=== PATIENT | male | born 1975 | race Caucasian/White ===

== ENCOUNTER 2021-05-11 17:30 | Emergency (ER) | payer SELFPAY ==
[2021-05-11 17:40] VITALS: BP 154/83; PULSE 104; RESP 16; TEMP 37.7; O2SAT 99
--- NOTE | 2021-05-11 19:02 | ED.URI ---
HPI - URI/Sore Throat General Chief Complaint: Upper Respiratory Infection Stated Complaint: cold/flu sx Time Seen by Provider: 05/11/21 19:03 Source: patient Mode of arrival: ambulatory Limitations: no limitations History of Present Illness HPI Narrative: 45-year-old male presenting for complaint of sinus pressure and congestion, headache, body aches, and cough over the past 3 days. He endorses feeling dizzy and decreased appetite. Denies n/v/d. He is a smoker 1 pack/day. He has taken ibuprofen this morning with no relief in headache pain. He is not vaccinated for COVID. He also endorses positive contacts with COVID. Related Data Home Medications Medication Instructions Recorded Confirmed No Home Medications 05/11/21 05/11/21 Allergies Allergy/AdvReac Type Severity Reaction Status Date / Time ciprofloxacin Allergy Intermediate RESPIRATORY Verified 12/09/14 22:31 DIFFICULTY, ITCHING Penicillins Allergy Mild Verified 12/09/14 22:31 codeine Allergy Unknown Unknown Verified 07/17/17 17:38 Review of Systems Review of Systems: CONSTITUTIONAL: Endorses malaise, chills, sweats, fever. EYES: Denies visual changes, redness, or discharge. ENT: Reports rhinorrhea, congestion, sinus pain, denies otalgia and sore throat. CARDIOVASCULAR: Denies chest pain, palpitations, or edema. RESPIRATORY: Reports cough, post nasal drainage. Denies dyspnea. GASTROINTESTINAL: Denies abdominal pain, nausea, vomiting, diarrhea SKIN: Denies rash or itching. MUSCULOSKELETAL: Denies myalgia. NEUROLOGIC: Denies headache. [facility] Family History Family History Other Cerebrovascular accident Family history of arthritis Family history of cardiovascular disease Hypertension Social History Social History Alcohol intake: current Comments At time of signature, I have reviewed and agree with nursing past medical, surgical, social and family history unless otherwise noted. Please see nursing chart for further information. There is no relevant family history pertinent to the presenting complaint Exam Narrative: GENERAL: Ill-appearing, non toxic, no acute distress. HEAD: Normocephalic EYES: PERRLA, conjunctivae clear ENT: Mucous membranes moist. TM pearly smith with dull light reflex bilaterally; no tragal tenderness. Oropharynx erythematous without lesions. Tonsils without exudate, no drooling, no hoarseness, no trismus, uvula midline. NECK: Supple. No lymphadenopathy CHEST: Clear to auscultation, breath sounds equal. No wheezing, rhonchi, rales, or stridor. Dry cough, No respiratory distress, speaks in full sentences. HEART: Regular rate and rhythm. No murmur heard. SKIN: Warm, dry, no rash. NEURO: Alert and oriented x3. PSYCH: Normal mood and affect Course Course Emergency Course: covid neg flu neg We discussed risk of false negative and symptom treatment. Patient is aware of diagnosis, understands and agrees to treatment plan. Anticipatory guidance given. Patient agrees to follow-up as directed and is aware of reasons to seek care at the emergency department. Portions of this record may have been created with voice recognition software Level of Care: Express Care Visit Vital Signs Vital signs: Vital Signs Temperature 99.8 F H 05/11/21 17:40 Pulse Rate 104 H 05/11/21 17:40 Respiratory Rate 16 05/11/21 17:40 Blood Pressure 154/83 H 05/11/21 17:40 Pulse Oximetry 99 05/11/21 17:40 Temperature 99.8 F H 05/11/21 17:40 Pulse Rate 104 H 05/11/21 17:40 Respiratory Rate 16 05/11/21 17:40 Blood Pressure 154/83 H 05/11/21 17:40 Pulse Oximetry 99 05/11/21 17:40 reviewed MDM - URI/Sore Throat Differential Diagnosis Differential diagnosis: Likely upper respiratory infection, sinusitis, viral infection and influenza Lab Data Attestation: I reviewed the patient's lab results. Labs: I
== END 2021-05-11 19:52 | disposition home or self-care (01) ==
PROVIDERS: Emergency Provider Nurse Practitioner Family
DX: B34.9 Viral infection, unspecified (principal); I51.9 Heart disease, unspecified
CPT/HCPCS: 87426; 87804; 99213; C9803; G0463

== ENCOUNTER 2021-10-07 01:39 | Inpatient (IN) | payer SELFPAY ==
[2021-10-07] VITALS (19 sets, daily range): BP systolic 105–152; BP diastolic 74–88; PULSE 60–98; RESP 13–99; TEMP 36.4–36.7; O2SAT 96–99; BMI 30.8
--- NOTE | ~2021-10-07 | XR_ITS ---
EXAMINATION: XR chest 2V DATE: 10/07/2021 02:07 INDICATION: Chest pain. TECHNIQUE: Frontal and lateral views of the chest were obtained. COMPARISON: Chest single view 12/26/2010 FINDINGS: The chest demonstrates clear lungs without pneumonia, pleural effusion, or pneumothorax. Th e heart size is normal. There are changes of anterior fusion procedure in cervical spine. There is an old healed fracture of right ninth rib. IMPRESSION: 1. No acute cardiopulmonary disease. Reviewed, dictated and finalized at location A.
--- NOTE | 2021-10-07 01:40 | ECG_ITS ---
Measurements Intervals Britt Rate: 79 P: 16 AL: 120 QRS: 63 QRSD: 113 T: -23 QT: 378 QTc: 435 Interpretive Statements SINUS RHYTHM MODERATE INTRAVENTRICULAR CONDUCTION DELAY [110+ ms QRS DURATION] NONSPECIFIC ST & T-WAVE ABNORMALITY NO PREVIOUS ECG AVAILABLE FOR COMPARISON Electronically Signed On 10-07-2021 7:26:59 CDT by Dean Doyle M.D.
--- NOTE | 2021-10-07 01:41 | PC.NURSE ---
pct offered pt a wheelchair, pt refused. pt ambulatory with steady gait to room 4 with pct.
[2021-10-07 01:51] LABS: Basophils Absolute Auto 0.1 K/mm3 (0.0-0.1); Basophils Percent Auto 0.6 % (0.2-1.2); Eosinophils Absolute Auto 0.3 K/mm3 (0-0.3); Eosinophils Percent Auto 3.6 % (0-4.4); Hematocrit 43.6 % (42.0-52.0); Hemoglobin 14.8 g/dL (14.0-18.0); Immature Granulocyte Absolute 0.04 K/mm3 (0.00-0.031); Immature Granulocyte Percent A 0.4 % (0-0.5); Lymphocytes Absolute Auto 3.27 K/mm3 (0.9-3.2); Lymphocytes Percent Auto 34.3 % (18.3-44.2); Mean Corpuscular HGB Conc 33.9 g/dl (32-36); Mean Corpuscular Volume 88.3 fl (80-100); Mean Platelet Volume 10.4 fl (7.4-10.4); Monocytes Absolute Auto 0.7 K/mm3 (0.1-0.6); Monocytes Percent Auto 7.1 % (2.6-8.5); Neutrophils Absolute Auto 5.1 K/mm3 (1.3-6.7); Platelet Count Result 229 k/mm3 (150-375); Red Blood Count 4.94 M/mm3 (4.6-6.20); Red Cell Distribution Width 12.5 % (11.5-14.5); White Blood Count 9.5 K/mm3 (4.5-10.0)
[2021-10-07 02:02] LABS: Partial Thromboplastin Time 28.1 SECONDS (22.3-36.8); Prothrombin Time 12.8 Seconds (11.1-14.7)
[2021-10-07 02:05] LABS: Alanine Aminotransferase 20 U/L (6-50); Albumin Level 4.2 g/dL (3.5-5.1); Alkaline Phosphatase 69 U/L (38-126); Anion Gap 6 mmol/L (8-16); Aspartate Amino Transferase 19 U/L (17-59); Bilirubin,Total 0.3 mg/dL (0.2-1.3); Blood Urea Nitrogen 11 mg/dL (9-20); Calcium 8.7 mg/dL (8.4-10.2); Carbon Dioxide 26 mmol/L (22-30); Chloride 108 mmol/L (98-107); Estimated CRCL calculation 120 ml/min; Estimated Glomerular Filt Rate > 60; Glucose 119 mg/dL (65-110); Lipase 128 U/L (23-300); Potassium 3.5 mmol/L (3.4-5.0); Sodium 140 mmol/L (137-145)
[2021-10-07 02:16] LABS: Troponin I 0.024 ng/mL (0.000-0.034)
[2021-10-07 02:24] LABS: NT Pro B Type Natriuretic Pept 79 pg/mL (5-100)
--- NOTE | 2021-10-07 02:38 | ED.CHESTPAIN ---
HPI - Chest Pain General Chief Complaint: Chest Pain Stated Complaint: chest pain Time Seen by Provider: 10/07/21 01:46 History of Present Illness HPI narrative: This 46-year-old male with history of CAD presents with 1 to 2 days of chest pain, he states that prior to presentation here he had severe pain in his chest that seem to radiate to both arms, with diaphoresis, no nausea or vomiting, but did have shortness of breath, it felt similar to his prior MIs so he took 2 nitroglycerin and an aspirin, felt slightly better, and came to the hospital. It seems to hurt more when he leans back. Related Data Home Medications Medication Instructions Recorded Confirmed No Home Medications 05/11/21 05/11/21 Allergies Allergy/AdvReac Type Severity Reaction Status Date / Time ciprofloxacin Allergy Intermediate RESPIRATORY Verified 10/07/21 01:48 DIFFICULTY, ITCHING Penicillins Allergy Mild Unknown Verified 10/07/21 01:48 codeine Allergy Unknown Unknown Verified 10/07/21 01:48 Review of Systems Review of Systems: CONST: Diaphoresis HEENT: No sore throat C/V: chest pain RESP: difficulty breathing, no cough GI: No nausea/vomiting : No dysuria. M/S: Pain bilateral arms SKIN: No rash. NEURO: [No headache or focal numbness or weakness] PSYCH: [No depression] [facility] Past Medical History Medical History Myocardial infarct Surgical History Surgical History Hx of cardiac catheterization Family History Family History Other Cerebrovascular accident Family history of arthritis Family history of cardiovascular disease Hypertension Social History Social History Alcohol intake: current Exam Narrative: EXAMINATION OF ORGAN SYSTEMS/BODY AREAS: Constitutional: Vital signs per nursing GENERAL: Present laying comfortable in bed HEAD: Normal with no signs of head trauma. EYES: EOMI, conjunctiva normal ENT: Hearing grossly intact LUNGS: Nonlabored breathing. HEART: [Regular rate and rhythm] ABD: [Soft], [nontender to palpation] EXT: Normal range of motion; bilateral radial and DP pulses intact SKIN: [No rashes or lesions.] NEURO: [Alert and oriented x 3. No gross focal sensory or strength deficits.] PSYCH: Normal affect Course Vital Signs Vital signs: Vital Signs Temperature 98 F 10/07/21 01:42 Pulse Rate 80 10/07/21 01:42 Respiratory Rate 16 10/07/21 01:42 Blood Pressure 152/88 H 10/07/21 01:42 Pulse Oximetry 98 10/07/21 01:42 Oxygen Delivery Room Air 10/07/21 01:42 Temperature 98 F 10/07/21 01:42 Pulse Rate 72 10/07/21 02:45 Respiratory Rate 18 10/07/21 02:45 Blood Pressure 123/76 10/07/21 02:45 Pulse Oximetry 98 10/07/21 02:45 Oxygen Delivery Room Air 10/07/21 01:55 MDM - Chest Pain MDM Narrative Medical decision making narrative: ED COURSE AND MEDICAL DECISION MAKIN46 year old male presenting with chest pain. EKG done in triage shows T wave flattening/ST depressions in inferior lateral leads but no STEMI. Cardiac workup is initiated. History suspicious for ACS/AK, Wells low risk with negative PERC making PE unlikely. Presentation not consistent with dissection or aneurysm without radiation of pain to back or pulse deficits. CXR negative for mediastinal widening. No abdominal pain or signs of sepsis that would be concerning for esophageal perforation or mediastinitis. Bedside echo does not show pericardial effusion/tamponade. HEART score is 6, findings discussed with patient and need for admission at this time for further observation, patient agreeable this, discussed with hospitalist Dr. Ma for admission. Procedures: Pulse oximetry interpretation - not hypoxic. EKG interpretation. Review of medical records. Lab Data Result diagrams: 0
[2021-10-07] MEDS: MORPHINE SULFATE (*CRX) 4 MG/ML INJ IV PUSH (02:44)
--- NOTE | 2021-10-07 04:10 | ADMGEN ---
This patient, Donnell Richmond, was admitted to IMU Room 207-01. Patient/family oriented to hospital policies and general routines including ID bracelet, bed and alarms, visiting hours, pain management, procedures, bathroom and other care routines, personal items, smoking policy, room service/diet, and visiting hours. Information on how to activate the Rapid Response Team has been discussed. Patient/Family are encouraged to report perceived risks to care and to ask questions if they do not understand what they are told or what they should do.
[2021-10-07 04:15] LABS: SARS-CoV-2 RNA PCR Negative
[2021-10-07 05:16] LABS: Cholesterol 185 mg/dL (0-200); HDL Direct 43 mg/dL; Triglycerides 178 mg/dL (<150)
[2021-10-07 05:26] LABS: LDL Cholesterol Direct 117 mg/dL
[2021-10-07 05:27] LABS: Troponin I 0.033 ng/mL (0.000-0.034)
--- NOTE | 2021-10-07 06:52 | PM.IMHP ---
H&P: HPI History of Present Illness Date/Time: 10/07/21 06:52 Chief Complaint: Chest pain Narrative: 46-year-old male with past medical history of chronic tobacco abuse, hyperlipidemia, premature coronary artery disease with multiple cardiac stents complicated by nonadherence to medication regimen who presented to the ER with chest pain. Patient reports that he had a STEMI in April 2010 (at age 34) He had a 2nd WV at age 39. He states that his original stent had occluded because he had quit taking some of his cardiac medications and he had to have angioplasty and 2nd stent placed in site of his original stent and had new disease requiring assistance in his posterior circulation. His 1st stent was placed by Dr. Nguyen and his 2nd stent was placed at [facility]. He admits that he has not followed up with Cardiology in at least 6 years. He is not taking has Lipitor, metoprolol, Plavix or aspirin in that same amount of time. 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 He reports that he has continued to smoke. He decided to come to the hospital this evening after he had been having intermittent substernal chest pain that is been ongoing for a couple of weeks. Initially the pain only occurred when he was having more vigorous activity. He reports that he had associated shortness of breath. He reports that over the last few days he would get substernal heaviness and shortness of breath any time he would laid down. He initially thought it was maybe some anxiety. Than a couple of days ago he had a episode of sharp stabbing pain but he had been lifting some furniture. He had not had a recurrence of a sharp stabbing pain. But yesterday he woke up at 12:30 p.m. with central chest pressure with associated diaphoresis and heavy almost numb sensation in his arms that radiated down to his elbows. He had gotten a bottle of nitro from his mother last month and took 2 nitro with no significant improvement in his symptoms. He also took a full-dose aspirin. When his pain did not resolve he drove himself to the ER. On arrival to the ER he was still having chest pain and received 4 mg morphine which helped with his symptoms. He reports that the symptoms he was having last night were similar to his prior WV. The only exception was at his pain this time involved both arms instead of just the left arm. He does have some GERD symptoms which he takes [id number] omeprazole. He does snore. He has been told that he stops breathing at night. He has been referred for polysomnogram in the past but could not afford the testing. Source of information: Patient report, ER report and review of limited past medical records. Review of Systems Review of Systems: 12 systems were reviewed with pertinent positives and negatives per HPI. Except as documented in the HPI, all other systems were reviewed and are negative. [facility] Past Medical History Medical History (Updated 10/07/21 @ 07:22 by Kassandra Ma DO) Continuous tobacco abuse Dyslipidemia Myocardial infarct Non compliance w medication regimen Right rotator cuff tear Surgical History Surgical History (Updated 10/07/21 @ 07:22 by Kassandra Ma DO) History of appendectomy History of cervical discectomy History of tonsillectomy and adenoidectomy Hx of cardiac catheterization April 2011 and 2015 Family History Family History (Updated 10/07/21 @ 07:09 by Kassandra Ma DO) Mother Diabetes mellitus Acute myocardial infarction Cerebrovascular accident SLE (systemic lupus erythematosus) CHF (congestive heart failure) Hypertension Son Kidney disease Father , In his 30s. Throat cancer was identified during autopsy. Throat cancer Homicide Social History Social History (Updated 10/07/21 @ 07:12 by Kassandra Ma DO) Social History: He works in [employer]. He has 6 children. One of his sons has kidney disease of uncertain type
[2021-10-07 08:14] LABS: Troponin I 0.036 ng/mL (0.000-0.034)
--- NOTE | 2021-10-07 09:28 | PM.CNCAR ---
Assessment and Plan Assessment and plan (1) Unstable angina pectoris: Code(s): I20.0 - Unstable angina Status: Acute Assessment and Plan: Patient presents with history consistent with unstable angina. Troponins are minimally elevated. EKG does not show any significant changes but with his history and known CAD I think he has ACS and we should proceed with cardiac catheterization. I reviewed the procedure with the patient including risks and benefits, possibility of medical therapy, stent, or bypass surgery. The patient states he will be compliant with medications; he cannot afford non generic medications however. He is aware that if he has PCI and stent and does not comply with dual anti-platelet therapy he could have stent thrombosis, TN and . He desires to proceed with cardiac catheterization. Patient has Plavix ordered; I will discontinue it in case the patient needs CABG. Spoke w/ RN; has not rec'd any yet. (2) Continuous tobacco abuse: Code(s): Z72.0 - Tobacco use Status: Acute Assessment and Plan: Understands he should quit but is not able to. (3) Non compliance w medication regimen: Code(s): Z91.14 - Patient's other noncompliance with medication regimen Status: Acute Assessment and Plan: Patient states he will be compliant with medications. He may have difficulty with office follow-up because of cost issues. (4) Hypercholesterolemia: Code(s): E78.00 - Pure hypercholesterolemia, unspecified Status: Acute Assessment and Plan: Total cholesterol 185, LDL 117. Resume statin therapy with high-dose atorvastatin. History of Present Illness History of Present Illness Consult date/time: 10/07/21 09:28 Reason For Visit: unstable angina Narrative: Donnell Richmond is a 46 y.o. male whom I was asked to see at the request of Dr. Lis Cheek for my advice and opinion regarding his chest pain and possible unstable angina, in consultation. He has a history of CAD, hyperlipidemia, noncompliance and tobacco use. Mr. Richmond has history of coronary disease, status post STEMI in April 2010 age 34. He apparently had a RCA stent placed. He was followed by Dr. Nguyen for year. He had another TN around 2012 or 2013 at the age of 39, treated at [facility] in [place]. Apparently he had perhaps in stent restenosis, and also coronary stenosis of a blood vessel in the back of his heart. The patient did well afterwards, and, since he lost his insurance, has not been back for follow-up. Over the last few months the patient has had problems with chest pressure radiating to the shoulders with activity such as cutting the grass or things that required extra work, so he thought maybe he was out of shape. Sometimes he has this at rest associated with stress. Last night he woke up at 12:30 a.m. from a sound sleep with fairly intense pressure radiating to both elbows, and felt it was hard to breathe. This felt like his prior MIs. He took 2 nitroglycerins and an aspirin without relief He drove himself to the emergency room. By this time the discomfort was abating after 4 mg of morphine a resolved in 10 or 15 minutes. He has done well run night but fell a little heartburn this morning. Review of Systems Constitutional: Constitutional: Denies lethargy Eyes: Eyes: Reports no additional eye complaints ENT: Denies nasal congestion Cardiovascular: Cardiovascular: Reports chest pain, Denies diaphoresis, Denies pedal edema, Denies leg edema, Denies lightheadedness and Denies palpitations Respiratory: Respiratory: Denies dyspnea on exertion and Denies wheezing Gastrointestinal: Gastrointestinal: Denies hematochezia Genitourinary: Genitourinary: Denies hematuria Musculoskeletal: Musculoskeletal: Reports back pain Integumentary/Breasts: Skin/Breast: Reports system reviewed and no additional complaints, except as docu Neurologic: Reports system reviewed a
--- NOTE | 2021-10-07 09:50 | WPDMODSED ---
Moderate Sedation Note-Pt Data Patient Data Diagnosis: CAD, unstable angina Present Complaint: Chest pain Procedure to be performed/Plan: Conscious sedation Selective coronary angiography Possible PCI Allergies Allergy/AdvReac Type Severity Reaction Status Date / Time ciprofloxacin Allergy Intermediate RESPIRATORY Verified 10/07/21 01:48 DIFFICULTY, ITCHING Penicillins Allergy Mild Unknown Verified 10/07/21 01:48 codeine Allergy Unknown Unknown Verified 10/07/21 01:48 Home Medications Medication Instructions Recorded Confirmed Type acetaminophen 325 mg tablet 650 mg PO Q6H PRN Pain 10/07/21 10/07/21 History (Tylenol) aspirin 325 mg tablet 325 mg PO DAILY 10/07/21 10/07/21 History esomeprazole magnesium 20 mg 20 mg PO DAILY 10/07/21 10/07/21 History capsule,delayed release (Nexium) multivitamin with minerals-folic 1 tablet PO DAILY 10/07/21 10/07/21 History acid 0.4 mg tablet Current Medications: Active Medications Acetaminophen (Acetaminophen 325 Mg Tablet) 650 mg PO Q6H PRN PRN Reason: Pain 1-3 Aspirin (Aspirin 81 Mg Enteric Tablet) 81 mg PO QAM [facility] Atorvastatin Calcium (Atorvastatin 20 Mg Tablet) 20 mg PO DAILY [facility] Enoxaparin Sodium (Enoxaparin 40 Mg/0.4 Ml Syringe) 40 mg SUB-Q DAILY [facility] Sodium Chloride (Normal Saline Iv) 500 mls @ 100 mls/hr IV CONT .Q5H [facility] Multivitamins/Calcium (Therapeutic Multivitamins/Minerals Tab (*Bkc)) 1 tablet PO DAILY [facility] Pantoprazole Sodium (Pantoprazole 40 Mg Tablet) 40 mg PO DAILY [facility] Stop: 11/06/21 08:59 Sedation/Anesthesia: No previous sedation/anesthesia problems (including family history). [facility] Past Medical History Medical History (Updated 10/07/21 @ 09:43 by Jessenia Kramer MD) Continuous tobacco abuse Dyslipidemia Hypercholesterolemia Myocardial infarct Non compliance w medication regimen Right rotator cuff tear Surgical History Surgical History History of appendectomy History of cervical discectomy History of tonsillectomy and adenoidectomy Hx of cardiac catheterization April 2011 and 2015 Family History Family History (Updated 10/07/21 @ 09:40 by Jessenia Kramer MD) Mother Diabetes mellitus Acute myocardial infarction Patient states his mother has had 5 open heart surgeries on 27 stents Cerebrovascular accident SLE (systemic lupus erythematosus) CHF (congestive heart failure) Hypertension Son Kidney disease Father , In his 30s. Throat cancer was identified during autopsy. 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 He has 6 children. One of his sons has kidney disease of uncertain type. 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 He used to drink heavily but now only drinks a few beers once a month. He denies illicit substance use. He has a girlfriend. He lives alone. Code status: Full code Smoking packs per day: 1 Smoking cigarettes per day: 20.0 Years smoked: 35 Smoking pack-years: 35.00 Smoking status: Current every day smoker Tobacco type: cigarettes Alcohol intake: current Alcohol use details: 3 or 4 drinks once a month. 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 Spiritual care concerns: No Mod Sed Physical Exam Physical Exam Pre Procedural Exam: Normal: Appearance, Eyes, Ears, Nose, Neck, Throat, Airway, Lungs, Heart Size, Heart Rate, Heart Rhythm, Neuro Exam, Abdomen, Extremities (Intact pedal and femoral pulses, no bruits) and Skin Hours since solid foods: 12 Hours since liquid intake: 12 Mallampati Classification: class III Internal Medicine - PN: Obj Da Vital Signs Vital Signs: Vital Signs - 24 hr 10/07/21 01:42 10/07/21 01:
[2021-10-07] MEDS: ATORVASTATIN 20 MG TABLET PO (09:56)
[2021-10-07] MEDS: PANTOPRAZOLE 40 MG TABLET PO (09:56)
[2021-10-07] MEDS: THERAPEUTIC MULTIVITAMINS/MINERALS TAB (*BKC) 1 TABLET PO (09:56)
[2021-10-07] MEDS: ASPIRIN 81 MG ENTERIC TABLET PO (09:56)
[2021-10-07] MEDS: ENOXAPARIN 40 MG/0.4 ML SYRINGE SUB-Q (13:36)
--- NOTE | 2021-10-07 14:12 | PM.IMPN ---
Progress Note: A&P Assessment and Plan (1) Unstable angina pectoris: Code(s): I20.0 - Unstable angina Status: Acute Assessment and Plan: Patient is chest pain concerning for unstable angina given his significant cardiac history with premature coronary artery disease. This is made worse by the patient's history and noncompliance with medication therapy. The patient states that although he does not have insurance he could afford Plavix statin therapy and beta-chayito and would be willing to resume these medications. I have restarted the patient on Plavix, aspirin and Lipitor. I will defer the choice of beta-chayito to Cardiology Service. 10/07/2021 interval history: patient states his chest pain has resolved, was seen by Cardiology recommended further evaluation with cardiac catheterization patient is scheduled for later today will follow-up and monitor (2) Continuous tobacco abuse: Code(s): Z72.0 - Tobacco use Status: Acute Assessment and Plan: The patient understands that he needs to quit smoking but is not interested in quitting at this time. Tobacco cessation information was provided. Risk of continuing smoking including recurrent PR, stroke and cancer discuss the patient. 5 minutes was spent in tobacco cessation education. The patient refuses a nicotine patch. (3) Non compliance w medication regimen: Code(s): Z91.14 - Patient's other noncompliance with medication regimen Status: Acute Assessment and Plan: The patient understands importance of his medications and is willing to resume his medications on discharge. Plan Patient has been admitted as observation status. Subjective Date/time seen: 10/07/21 14:12 [id number] male with past medical history of chronic tobacco abuse, hyperlipidemia, premature coronary artery disease with multiple cardiac stents complicated by nonadherence to medication regimen who presented to the ER with chest pain.? Patient reports that he had a STEMI in April 2010 (at age 34) He had a 2nd PR at age 39.? He states that his original stent had occluded because he had quit taking some of his cardiac medications and he had to have angioplasty and 2nd stent placed in site of his original stent and had new disease requiring assistance in his posterior circulation.? His 1st stent was placed by Dr. Nguyen and his 2nd stent was placed at [facility].? He admits that he has not followed up with Cardiology in at least 6 years.? He is not taking has Lipitor, metoprolol, Plavix or aspirin in that same amount of time.? 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 He reports that he has continued to smoke.? He decided to come to the hospital this evening after he had been having intermittent substernal chest pain that is been ongoing for a couple of weeks.? Initially the pain only occurred when he was having more vigorous activity.? He reports that he had associated shortness of breath.? He reports that over the last few days he would get substernal heaviness and shortness of breath any time he would laid down.? He initially thought it was maybe some anxiety.? Than a couple of days ago he had a episode of sharp stabbing pain but he had been lifting some furniture.? He had not had a recurrence of a sharp stabbing pain.? But yesterday he woke up at 12:30 p.m. with central chest pressure with associated diaphoresis and heavy almost numb sensation in his arms that radiated down to his elbows.? He had gotten a bottle of nitro from his mother last month and took 2 nitro with no significant improvement in his symptoms.? He also took a full-dose aspirin.? When his pain did not resolve he drove himself to the ER.? On arrival to the ER he was still having chest pain and received 4 mg morphine which helped with his symptoms.? He reports that the symptoms he was having last night were similar to his prior PR.? The only exception was at his pa
--- NOTE | 2021-10-07 15:03 | PM.PNCARD ---
Subjective Date/time seen: 10/07/21 15:03 Patient does not feel as well off dobutamine, when he walked up and down the ward he became breathless. Occasionally has a low blood pressure but not symptomatic. Entresto on hold because of hyperkalemia. Still with frequent chronic cough. Unable to lie down, sleeping at at least a 45 degree angle. Still has edema. Review of Systems Constitutional: Constitutional: Denies fever(s) ENT: Denies nasal congestion Cardiovascular: Cardiovascular: Denies chest pain, Denies pedal edema, Denies lightheadedness and Denies dyspnea Respiratory: Respiratory: Denies chest congestion, Reports cough, Reports dyspnea and Reports dyspnea on exertion Gastrointestinal: Gastrointestinal: Denies abdominal pain and Denies hematochezia Musculoskeletal: Musculoskeletal: Reports no additional musculoskeletal complaints Integumentary/Breasts: Skin/Breast: Reports system reviewed and no additional complaints, except as docu Neurologic: Reports system reviewed and no additional complaints, except as documented, Denies behavioral changes and Denies confusion Psychiatric: Psychiatric: Denies behavioral changes and Denies confusion Exam Const: General: cooperative, healthy appearing and comfortable; No confusion Orientation/consciousness: No confusion Other: Frequent dry cough, at the bedside. HENMT: Mouth: Yes moist mucous membranes Eyes: EOM: EOMs intact bilaterally Resp: Effort & Inspection: normal respiratory effort Auscultation: clear to auscultation bilaterally Cardio: Rate: regular rate Rhythm: regular rhythm Heart sounds: no murmurs GI: Inspection: normal to inspection GI Palp: No abdominal tenderness Skin: General skin exam: no rashes or lesions noted Neuro: General: No confusion Extrem: Right lower extremity: edema Left lower extremity: edema Other: Mild to moderate edema lower extremities Psych: Appearance: grossly normal Mental Status: mental status grossly normal Objective Data Vital Signs Vital Signs: Vital Signs - 24 hr 10/07/21 01:42 10/07/21 01:55 10/07/21 02:45 Temperature 98 F Pulse Rate 80 72 Respiratory Rate 16 18 Blood Pressure 152/88 H 123/76 Pulse Oximetry 98 98 98 Oxygen Delivery Room Air Room Air 10/07/21 03:01 10/07/21 03:16 10/07/21 03:31 Temperature Pulse Rate 70 71 74 Respiratory Rate 13 16 20 Blood Pressure 113/78 105/74 111/75 Pulse Oximetry 98 98 97 Oxygen Delivery 10/07/21 04:10 10/07/21 05:00 10/07/21 04:16 Temperature 98.0 F Pulse Rate 98 67 Respiratory Rate 18 Blood Pressure 124/74 Pulse Oximetry 99 Oxygen Delivery Room Air 10/07/21 06:00 10/07/21 08:47 10/07/21 08:00 Temperature 97.7 F Pulse Rate 72 72 Respiratory Rate 18 Blood Pressure 122/87 Pulse Oximetry 98 99 Oxygen Delivery Room Air 10/07/21 12:00 10/07/21 08:00 10/07/21 10:00 Temperature 97.6 F Pulse Rate 66 67 64 Respiratory Rate 16 Blood Pressure 149/78 H Pulse Oximetry 96 Oxygen Delivery 10/07/21 12:00 Temperature Pulse Rate 65 Respiratory Rate Blood Pressure Pulse Oximetry Oxygen Delivery Intake/Output Intake/Output: Intake & Output 10/04/21 10/05/21 10/06/21 10/07/21 23:59 23:59 23:59 23:59 Intake Total 0 Balance 0 Meds/Results Medications: Active Medications Generic Name Dose Route Start Last Admin Trade Name Freq PRN Reason Stop Dose Admin Acetaminophen 650 mg 10/07/21 07:16 Acetaminophen 325 Mg Tablet PO Q6H PRN Pain 1-3 Aspirin 81 mg 10/07/21 09:00 10/07/21 09:56 Aspirin 81 Mg Enteric Tablet PO 81 mg QAM CARSON Administration Atorvastatin Calcium 20 mg 10/07/21 09:00 10/07/21 09:56 Atorvastatin 20 Mg Tablet PO 20 mg DAILY CARSON Administration Enoxaparin Sodium 40 mg 10/07/21 09:00 10/07/21 13:36 Enoxaparin 40 Mg/0.4 Ml Syringe SUB-Q 40 mg DAILY CARSON Administration Sodium Chloride 500 mls @ 100 mls
[2021-10-07] MEDS: SODIUM CHLORIDE 0.9% IV 500 ML 100 ML IV CONT (20:30)
[2021-10-08] VITALS (19 sets, daily range): BP systolic 106–155; BP diastolic 65–92; PULSE 46–84; RESP 12–18; TEMP 35.8–36.7; O2SAT 96–100
[2021-10-08] MEDS: SODIUM CHLORIDE 0.9% IV 500 ML 100 ML IV CONT ×3 (01:46→13:36)
[2021-10-08 05:03] LABS: Hematocrit 42.3 % (42.0-52.0); Hemoglobin 14.1 g/dL (14.0-18.0); Mean Corpuscular HGB Conc 33.3 g/dl (32-36); Mean Corpuscular Hemoglobin 29.6 pg (26-34); Mean Corpuscular Volume 88.9 fl (80-100); Mean Platelet Volume 10.8 fl (7.4-10.4); Platelet Count Result 210 k/mm3 (150-375); Red Blood Count 4.76 M/mm3 (4.6-6.20); Red Cell Distribution Width 12.3 % (11.5-14.5); White Blood Count 7.3 K/mm3 (4.5-10.0)
[2021-10-08 05:15] LABS: Anion Gap 2 mmol/L (8-16); Blood Urea Nitrogen 11 mg/dL (9-20); Calcium 8.3 mg/dL (8.4-10.2); Carbon Dioxide 26 mmol/L (22-30); Chloride 110 mmol/L (98-107); Estimated CRCL calculation 134 ml/min; Estimated Glomerular Filt Rate > 60; Glucose 111 mg/dL (65-110); Potassium 3.9 mmol/L (3.4-5.0); Sodium 138 mmol/L (137-145)
[2021-10-08] MEDS: ATORVASTATIN 40 MG TABLET PO (08:04)
[2021-10-08] MEDS: ASPIRIN 81 MG ENTERIC TABLET PO (08:04)
[2021-10-08] MEDS: THERAPEUTIC MULTIVITAMINS/MINERALS TAB (*BKC) 1 TABLET PO (08:04)
[2021-10-08] MEDS: PANTOPRAZOLE 40 MG TABLET PO (08:05)
--- NOTE | 2021-10-08 08:30 | WPDMODSED ---
Moderate Sedation Note-Pt Data Patient Data Diagnosis: ACS Present Complaint: cp Procedure to be performed/Plan: cath w/ consious sedaton Allergies Allergy/AdvReac Type Severity Reaction Status Date / Time ciprofloxacin Allergy Intermediate RESPIRATORY Verified 10/07/21 01:48 DIFFICULTY, ITCHING Penicillins Allergy Mild Unknown Verified 10/07/21 01:48 codeine Allergy Unknown Unknown Verified 10/07/21 01:48 Home Medications Medication Instructions Recorded Confirmed Type acetaminophen 325 mg tablet 650 mg PO Q6H PRN Pain 10/07/21 10/07/21 History (Tylenol) aspirin 325 mg tablet 325 mg PO DAILY 10/07/21 10/07/21 History esomeprazole magnesium 20 mg 20 mg PO DAILY 10/07/21 10/07/21 History capsule,delayed release (Nexium) multivitamin with minerals-folic 1 tablet PO DAILY 10/07/21 10/07/21 History acid 0.4 mg tablet Current Medications: Active Medications Acetaminophen (Acetaminophen 325 Mg Tablet) 650 mg PO Q6H PRN PRN Reason: Pain 1-3 Aspirin (Aspirin 81 Mg Enteric Tablet) 81 mg PO QAM [facility] Last Admin: 10/08/21 08:04 Dose: 81 mg Atorvastatin Calcium (Atorvastatin 40 Mg Tablet) 40 mg PO DAILY [facility] Last Admin: 10/08/21 08:04 Dose: 40 mg Enoxaparin Sodium (Enoxaparin 40 Mg/0.4 Ml Syringe) 40 mg SUB-Q DAILY [facility] Last Admin: 10/07/21 13:36 Dose: 40 mg Sodium Chloride (Normal Saline Iv) 500 mls @ 100 mls/hr IV CONT .Q5H [facility] Last Admin: 10/08/21 06:44 Dose: 100 mls/hr Multivitamins/Calcium (Therapeutic Multivitamins/Minerals Tab (*Bkc)) 1 tablet PO DAILY [facility] Last Admin: 10/08/21 08:04 Dose: 1 tablet Pantoprazole Sodium (Pantoprazole 40 Mg Tablet) 40 mg PO DAILY [facility] Stop: 11/06/21 08:59 Last Admin: 10/08/21 08:05 Dose: 40 mg Sedation/Anesthesia: No previous sedation/anesthesia problems (including family history). [facility] Past Medical History Medical History (Updated 10/07/21 @ 09:43 by Jessenia Kramer MD) Continuous tobacco abuse Dyslipidemia Hypercholesterolemia Myocardial infarct Non compliance w medication regimen Right rotator cuff tear Surgical History Surgical History History of appendectomy History of cervical discectomy History of tonsillectomy and adenoidectomy Hx of cardiac catheterization April 2011 and 2015 Family History Family History (Updated 10/07/21 @ 09:40 by Jessenia Kramer MD) Mother Diabetes mellitus Acute myocardial infarction Patient states his mother has had 5 open heart surgeries on 27 stents Cerebrovascular accident SLE (systemic lupus erythematosus) CHF (congestive heart failure) Hypertension Son Kidney disease Father , In his 30s. Throat cancer was identified during autopsy. 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 He has 6 children. One of his sons has kidney disease of uncertain type. 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 He used to drink heavily but now only drinks a few beers once a month. He denies illicit substance use. He has a girlfriend. He lives alone. Code status: Full code Smoking packs per day: 1 Smoking cigarettes per day: 20.0 Years smoked: 35 Smoking pack-years: 35.00 Smoking status: Current every day smoker Tobacco type: cigarettes Alcohol intake: current Alcohol use details: 3 or 4 drinks once a month. 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 Spiritual care concerns: No Mod Sed Physical Exam Physical Exam Pre Procedural Exam: Normal: Appearance, Eyes, Ears, Nose, Neck, Throat, Airway, Lungs, Heart Size, Heart Rate, Heart Rhythm, Neuro Exam, Abdomen, Liver, Extremities and Skin Hours since solid foods: 12 Hours since
--- NOTE | 2021-10-08 08:32 | WPDHPUPDATE1 ---
History and Physical Update Update Date/Time: 10/08/21 08:32 History and Physical has been reviewed, including an updated exam of the patient. There are NO changes in the patient's condition. Risks, benefits, and alternatives have been discussed and questions answered. Patient agrees to proceed with procedure.
--- NOTE | 2021-10-08 09:15 | PM.OP ---
Procedure Note - Brief Procedure Note - Brief Date of procedure: 10/08/21 Pre-op diagnosis: unstable angina Acute coronary syndrome Post-op diagnosis: Same Procedure performed: left heart catheterization Conscious sedation Description of procedure: uneventful left heart catheterization Surgeon: Jessenia Kramer MD Findings: 95% stenosis of a large 2nd obtuse marginal involving the distal stent Occluded mid RCA stents Posterior descending fills well by collaterals Mild plaquing of the Left anterior descending and small 1st obtuse marginal EF 60-65% Plan: Dr. Dale assumed care of the patient and will attempt PCI of the 2nd OM
--- NOTE | 2021-10-08 09:17 | W.PM.PROC2 ---
Procedure Note - Detailed Date of Procedure 10/08/21 Pre-op Diagnosis unstable angina Post-op Diagnosis Same Procedure Performed Conscious sedation Left heart catheterization Selective coronary angiography Left ventriculography Angiography of the right common femoral artery Surgeon Jessenia Kramer MD Anesthesia Local ( with conscious sedation) Indications 46-year-old male with history of STEMI and an RCA [place] [address] Hickman. The patient suffered another MO around 2012 or 2013 treated at [facility] in [place]. He apparently had InStent restenosis of the RCA and coronary stenosis of a blood vessel in the back of his heart (obtuse marginal). Both vessels were stented. Patient presented to [facility] with ACS/non STEMI this admission. Findings Pressures: Aortic pressure 127/68 mmHg LV pressure 131/10 mmHg Left coronary Artery: The left main was patent. The Left anterior descending had some mild plaquing in the mid segment. There are well-developed collaterals to the large posterior descending artery. The circumflex gave rise to a small 1st obtuse marginal which had a 40-50% stenosis. The large 2nd obtuse marginal had a stent to the mid segment. At the distal end of the stent there was a 90-95% hazy stenosis. The remainder of the circumflex was small. Right coronary artery: there appears to be 2 stents in the mid segment. The right coronary arteries occluded at this area. Faint right to right collaterals were seen. Left ventriculogram: Left ventriculography revealed good overall left ventricular function, EF 60-65%, with mild basal inferior hypokinesis. There is no mitral regurgitation. Conclusion: 1. The right coronary arterie is occluded in the mid segment at the site of prior stents. This is likely a chronic occlusion in view of the well-developed collaterals to the Large posterior descending artery. 2. 90-95% stenosis of the large obtuse marginal just distal to the stent, which is likely the culprit lesion 3. Mild plaquing of the mid Left anterior descending, with 40-50% stenosis of a small 1st obtuse marginal. 4. Mild basal inferior hypokinesis, overall ejection fraction is 60-65% Recommendation: 1. Proceed with PCI of the large 2nd obtuse marginal , which appears to be the culprit lesion. 2. Treat the occluded right coronary artery medically. 3. If the patient has ongoing angina we can attempt PCI of the chronic total occlusion of the right coronary artery at a later date. Description of Procedure Procedure: 1. Conscious sedation 2. Left heart catheterization 3. Selective Coronary angiography 4. Left ventriculography Site: Right femoral artery Catheters: 5 Stateless arterial sheath, 5 Stateless 4 cm right and left Flora catheters, 5 Stateless pigtail catheter, 6 Stateless arterial sheath Conscious sedation: The patient has no known prior history of adverse affects of conscious sedation. Oropharynx was clear. The patient is deemed a good candidate for conscious sedation. Conscious sedation began at: 8:38 a.m. Conscious sedation ended at: 9:00 a.m. Total conscious sedation time: 22 minutes Medications: Versed 3 mg, fentanyl 100 mcg IV push The patient had continuous hemodynamic monitoring, and was also continuously monitored by:Katia Beckford RN The patient tolerated conscious sedation well. Detailed procedure: After informed consent the patient brought to the labor arbitrator and the right femoral area was prepped and draped in the usual fashion. After conscious sedation and local anesthesia the right femoral artery was punctured and cannulated with the arterial sheath. Selective Coronary angiography was performed with the coronary catheters in multiple projections. These were withdrawn. The pigtail catheter was advanced into the central circulation and left ventricle for pressure measurements and left ventriculography which was performed in the LEROY projection
--- NOTE | 2021-10-08 09:50 | WPDCARDPROC ---
Cardiac Cath Procedure Note Date of procedure:: 10/08/21 Performing physician:: Dylan Dale MD Date of service 10/08/2021 Indication:: unstable angina Brief clinical history:: this is 46-year-old patient past medical history of tobacco use, 2 previous stents to the RCA OM who presents with chest pain concerning for unstable angina. The just underwent cardiac catheterization by [facility] was found to have totally RCA stent with [id number] collaterals. There is a stent in the mid OM1 however the stent shows focal stenosis right after the stent of about 99%. RADHA flow 3. Procedure Procedure performed:: 1- moderate sedation that started at 915 a.m. and ended at 9:49 a.m. using 1 mg of Versed and 25 mcg of fentanyl. The registered nurse was Katia ga. 2- selective left coronary angiogram. 3- Intravascular ultrasound of the OM1. 4- deployment of a drug-eluting stent Xience skyline 2.5 x 12 overlapping the old stent in the OM and distal to it in overlapping fashion. Deployment under 10 atmospheres for 40 seconds. stent balloon was used to post dilate the overlap segment under 10 atmospheres for 25 seconds. Sedation/Medication given:: see above Access site:: right femoral artery Estimated blood loss:: 5 cc Procedure note:: moderate sedation given and then through the right femoral artery sheath given with 6 Singaporean guide catheter CLS 3.5 engaged the left main. Coronary luge wire was advanced to distal. Balloon angioplasty done distal to the stent using 2.5 by 12 balloon with inflation under normal pressure for 25 seconds with 2 inflations. Subsequently a we went with intravascular ultrasound and did some measurements. After that deployment of a drug-eluting stent 2.5 by 12 skyline Xience in overlapping fashion under 10 atmospheres for 40 seconds and we used the stent balloon to post dilate the overlap segments under 10 atmospheres 25 seconds. Findings:: - We identified high-grade stenosis 99% distal to the stent in OM1 with RADHA flow 3. post stenting there is also looks great. minimal InStent restenosis of the old stent in OM1. - intravascular ultrasound of the OM1 distal to the old stent shows the diameter of the artery was 2.5 mm to 2.6 mm. the old stent looks well apposed and well expanded. Conclusion:: successful stenting of OM1 Assessment and Plan Assessment and plan (1) Unstable angina pectoris: Code(s): I20.0 - Unstable angina Status: Acute Plan - continue aspirin and Brilinta. - tobacco cessation. - right coronary artery infusion will be managed medically and this patient has intractable angina. Right coronary artery is well collateralized from the left coronary system. occlusion appears to be chronic.
--- NOTE | 2021-10-08 09:57 | WPDMODSED ---
Moderate Sedation Note-Pt Data Patient Data Allergies Allergy/AdvReac Type Severity Reaction Status Date / Time ciprofloxacin Allergy Intermediate RESPIRATORY Verified 10/07/21 01:48 DIFFICULTY, ITCHING Penicillins Allergy Mild Unknown Verified 10/07/21 01:48 codeine Allergy Unknown Unknown Verified 10/07/21 01:48 Home Medications Medication Instructions Recorded Confirmed Type acetaminophen 325 mg tablet 650 mg PO Q6H PRN Pain 10/07/21 10/07/21 History (Tylenol) aspirin 325 mg tablet 325 mg PO DAILY 10/07/21 10/07/21 History esomeprazole magnesium 20 mg 20 mg PO DAILY 10/07/21 10/07/21 History capsule,delayed release (Nexium) multivitamin with minerals-folic 1 tablet PO DAILY 10/07/21 10/07/21 History acid 0.4 mg tablet Current Medications: Active Medications Acetaminophen (Acetaminophen 325 Mg Tablet) 650 mg PO Q6H PRN PRN Reason: Pain 1-3 Aspirin (Aspirin 81 Mg Enteric Tablet) 81 mg PO QAM [facility] Last Admin: 10/08/21 08:04 Dose: 81 mg Atorvastatin Calcium (Atorvastatin 40 Mg Tablet) 40 mg PO DAILY [facility] Last Admin: 10/08/21 08:04 Dose: 40 mg Enoxaparin Sodium (Enoxaparin 40 Mg/0.4 Ml Syringe) 40 mg SUB-Q DAILY [facility] Last Admin: 10/07/21 13:36 Dose: 40 mg Sodium Chloride (Normal Saline Iv) 500 mls @ 100 mls/hr IV CONT .Q5H [facility] Last Admin: 10/08/21 06:44 Dose: 100 mls/hr Multivitamins/Calcium (Therapeutic Multivitamins/Minerals Tab (*Bkc)) 1 tablet PO DAILY [facility] Last Admin: 10/08/21 08:04 Dose: 1 tablet Pantoprazole Sodium (Pantoprazole 40 Mg Tablet) 40 mg PO DAILY [facility] Stop: 11/06/21 08:59 Last Admin: 10/08/21 08:05 Dose: 40 mg Sedation/Anesthesia: No previous sedation/anesthesia problems (including family history). [facility] Past Medical History Medical History Continuous tobacco abuse Dyslipidemia Hypercholesterolemia Myocardial infarct Non compliance w medication regimen Right rotator cuff tear Surgical History Surgical History History of appendectomy History of cervical discectomy History of tonsillectomy and adenoidectomy Hx of cardiac catheterization April 2011 and 2015 Family History Family History Mother Diabetes mellitus Acute myocardial infarction Patient states his mother has had 5 open heart surgeries on 27 stents Cerebrovascular accident SLE (systemic lupus erythematosus) CHF (congestive heart failure) Hypertension Son Kidney disease Father , In his 30s. Throat cancer was identified during autopsy. 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 He has 6 children. One of his sons has kidney disease of uncertain type. 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 He used to drink heavily but now only drinks a few beers once a month. He denies illicit substance use. He has a girlfriend. He lives alone. Code status: Full code Smoking packs per day: 1 Smoking cigarettes per day: 20.0 Years smoked: 35 Smoking pack-years: 35.00 Smoking status: Current every day smoker Tobacco type: cigarettes Alcohol intake: current Alcohol use details: 3 or 4 drinks once a month. 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 Spiritual care concerns: No Mod Sed Physical Exam Physical Exam Pre Procedural Exam: Normal: Appearance, Eyes, Ears, Nose, Neck, Throat, Airway, Lungs, Heart Size, Heart Rate, Heart Rhythm, Neuro Exam, Abdomen, Liver, Kidneys, Spleen, Breasts, Genitalia, Extremities and Skin Hours since solid foods: 8 Hours since liquid intake: 8 Mallampati Classification: class 1 Internal Medici
--- NOTE | 2021-10-08 09:58 | ECG_ITS ---
Measurements Intervals Taylor Rate: 54 P: -5 MA: 154 QRS: 48 QRSD: 110 T: 3 QT: 411 QTc: 393 Interpretive Statements SINUS BRADYCARDIA COMPARED TO ECG 10/07/2021 01:47:16 SINUS BRADYCARDIA NOW PRESENT Electronically Signed On 10-08-2021 20:36:48 CDT by Jessenia Kramer M.D.
--- NOTE | 2021-10-08 09:58 | WPDHPUPDATE1 ---
History and Physical Update Update Date/Time: 10/08/21 09:58 History and Physical has been reviewed, including an updated exam of the patient. There are NO changes in the patient's condition. Risks, benefits, and alternatives have been discussed and questions answered. Patient agrees to proceed with procedure.
--- NOTE | 2021-10-08 16:05 | PM.IMPN ---
Progress Note: A&P Assessment and Plan (1) Unstable angina pectoris: Code(s): I20.0 - Unstable angina Status: Acute Assessment and Plan: Patient is chest pain concerning for unstable angina given his significant cardiac history with premature coronary artery disease. This is made worse by the patient's history and noncompliance with medication therapy. The patient states that although he does not have insurance he could afford Plavix statin therapy and beta-chayito and would be willing to resume these medications. I have restarted the patient on Plavix, aspirin and Lipitor. I will defer the choice of beta-chayito to Cardiology Service. 10/07/2021 interval history: patient states his chest pain has resolved, was seen by Cardiology recommended further evaluation with cardiac catheterization patient is scheduled for later today will follow-up and monitor. 10/08/2021 interval history: today patient was taken to the cardiac lab and had a cardiac catheterization, the reports his pending however patient states they found coronary artery disease and stents were placed, patient states is feeling much better now denies any chest pain, will follow-up on cardiac catheterization report and further recommendation to follow will continue to monitor. (2) Continuous tobacco abuse: Code(s): Z72.0 - Tobacco use Status: Acute Assessment and Plan: The patient understands that he needs to quit smoking but is not interested in quitting at this time. Tobacco cessation information was provided. Risk of continuing smoking including recurrent SC, stroke and cancer discuss the patient. 5 minutes was spent in tobacco cessation education. The patient refuses a nicotine patch. (3) Non compliance w medication regimen: Code(s): Z91.14 - Patient's other noncompliance with medication regimen Status: Acute Assessment and Plan: The patient understands importance of his medications and is willing to resume his medications on discharge. Plan Patient has been admitted as observation status. Subjective Date/time seen: 10/08/21 16:05 Patient is chest pain concerning for unstable angina given his significant cardiac history with premature coronary artery disease. This is made worse by the patient's history and noncompliance with medication therapy. The patient states that although he does not have insurance he could afford Plavix statin therapy and beta-chayito and would be willing to resume these medications. I have restarted the patient on Plavix, aspirin and Lipitor. I will defer the choice of beta-chayito to Cardiology Service. 10/08/2021 interval history: today patient was taken to the cardiac lab and had a cardiac catheterization, the reports his pending however patient states they found coronary artery disease and stents were placed, patient states is feeling much better now denies any chest pain, will follow-up on cardiac catheterization report and further recommendation to follow will continue to monitor. Review of Systems Constitutional: Constitutional: Denies lethargy Exam Narrative: moderately obese Patient is comfortable, NAD HEENT: eyes are clear and none icteric LUNGS: normal respiratory effort ABD: distended Lower extremities: no edema SKIN: nonjaundiced Neuro: grossly intact. Objective Data Vital Signs Vital Signs: Vital Signs - 24 hr 10/07/21 20:00 10/07/21 20:00 10/07/21 22:00 Temperature 97.9 F Pulse Rate 73 70 67 Respiratory Rate 99 H Blood Pressure 135/80 Pulse Oximetry 97 Oxygen Delivery 10/07/21 23:23 10/08/21 00:00 10/08/21 02:00 Temperature 98.0 F Pulse Rate 60 60 66 Respiratory Rate 18 Blood Pressure 125/76 Pulse Oximetry 98 Oxygen Delivery 10/07/21 21:41 10/08/21 04:00 10/08/21 04:00 Temperature 98.0 F Pulse Rate 51 L 57 L Respiratory Rate 18 Blood Pressure 125/65 Pulse Oximetry 97 97 Oxygen Del
--- NOTE | 2021-10-08 16:17 | PC.NURSE ---
[facility] flyer was given to patient.
[2021-10-08] MEDS: TICAGRELOR 90 MG TABLET PO (20:07)
[2021-10-08] MEDS: ACETAMINOPHEN 325 MG TABLET 650 MG PO (20:13)
[2021-10-08] MEDS: BENZOCAINE 20% DENTAL GEL 9 GM TUBE 1 APPLIC BY MOUTH (23:07)
[2021-10-09] VITALS (7 sets, daily range): BP systolic 141–149; BP diastolic 84–91; PULSE 53–112; RESP 10–20; TEMP 36.2–36.7; O2SAT 97–99
[2021-10-09] MEDS: BENZOCAINE 20% DENTAL GEL 9 GM TUBE 1 APPLIC BY MOUTH (04:19)
--- NOTE | 2021-10-09 08:52 | PM.PNCARD ---
Progress Note: A&P Assessment and Plan (1) Unstable angina pectoris: Code(s): I20.0 - Unstable angina Status: Acute Assessment and Plan: S/p coronary angiogram with successful stenting of an OM1 branch just distal to previously placed stent. 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 Brilinta for one month (provided him with samples) then will shift to Plavix; he cannot afford shelter brilinta because he is uninsured. ASA Statin Aggressive risk factor modification OK for discharge home today from a cardiac standpoint (2) Hypercholesterolemia: Code(s): E78.00 - Pure hypercholesterolemia, unspecified Status: Acute Assessment and Plan: He has been started on a statin (3) Continuous tobacco abuse: Code(s): Z72.0 - Tobacco use Status: Acute Assessment and Plan: I counseled the patient extensively on the importance of smoking cessation. (4) Non compliance w medication regimen: Code(s): Z91.14 - Patient's other noncompliance with medication regimen Status: Acute Assessment and Plan: Reviewed the importance of maintaining DAPT without any interruption and complete compliance for at least one year. He understands and verbalizes the importance of compliance with ASA, Brilinta (will he switched to plavix in one month), and statin. Subjective Date/time seen: 10/09/21 08:52 cardiology follow-up for CAD Interval history: Feeling well this morning. Has had no recurrent chest pain. Denies shortness of breath, palpitations. Has been out of bed this morning and ambulated without difficulty. He is complaining of some tooth/jaw pain. Review of Systems Constitutional: Constitutional: Denies chills, Denies fever(s), Denies headache(s) and Denies malaise Eyes: Eyes: Denies change in vision ENT: Reports Normal hearing present, Denies dizziness, Denies headache(s) and Denies hearing loss Cardiovascular: Cardiovascular: Reports chest pain, Reports chest pain at rest, Reports chest pain with activity, Denies syncope, Denies leg edema, Denies palpitations, Denies dyspnea and Denies dyspnea on exertion Respiratory: Respiratory: Denies cough, Denies dyspnea, Denies dyspnea on exertion and Denies wheezing Gastrointestinal: Gastrointestinal: Denies abdominal pain, Denies constipation and Denies diarrhea Genitourinary: Genitourinary: Denies hematuria and Denies dysuria Musculoskeletal: Musculoskeletal: Denies myalgias, Denies arthralgias and Denies muscle cramps Integumentary/Breasts: Skin/Breast: Denies wounds Neurologic: Reports Normal hearing present, Denies confusion, Denies dizziness, Denies syncope and Denies headache(s) Psychiatric: Psychiatric: Denies anxiety, Denies confusion and Denies depression Endocrine: Endocrine: Denies cold intolerance, Denies flushing, Denies heat intolerance and Denies palpitations Hematologic/Lymphatic: Hematologic/Lymphatic: Denies easy bleeding and Denies easy bruising Allergic/Immunologic: Allergic/Immunologic: Denies wheezing Exam Const: General: comfortable, no acute distress, alert and awake Orientation/consciousness: patient oriented x3 HENMT: Head: normal to inspection Eyes: General: appearance normal, both eyes and all related structures Pupils: Equal, round and reactive pupils present Neck: Neck: normal visual inspection, supple and no JVD Carotids: normal carotid upstroke Resp: Effort & Inspection: normal respiratory effort Auscultation: clear to auscultation bilaterally Cardio: Rate: regular rate Rhythm: regular rhythm Heart sounds: S1 normal heart sound present, S2 normal heart sound present and no murmurs GI: Auscultation: normal bowel sounds Skin: General skin exam: normal color Other: Right coronary arterial insertion site free from bleeding, hematoma, or bruit. Neuro: General: patient oriented x3 Cranial nerves: Yes Equal, round and reactive pupils present Extrem: General: normal to inspection P
[2021-10-09] MEDS: ENOXAPARIN 40 MG/0.4 ML SYRINGE SUB-Q (09:01)
[2021-10-09] MEDS: PANTOPRAZOLE 40 MG TABLET PO (09:01)
[2021-10-09] MEDS: THERAPEUTIC MULTIVITAMINS/MINERALS TAB (*BKC) 1 TABLET PO (09:01)
[2021-10-09] MEDS: ASPIRIN 81 MG ENTERIC TABLET PO (09:01)
[2021-10-09] MEDS: TICAGRELOR 90 MG TABLET PO (09:01)
[2021-10-09] MEDS: ATORVASTATIN 40 MG TABLET PO (09:01)
[2021-10-09 09:48] LABS: Hematocrit 44.8 % (42.0-52.0); Hemoglobin 15.7 g/dL (14.0-18.0); Mean Corpuscular Hemoglobin 29.9 pg (26-34); Mean Corpuscular Volume 85.3 fl (80-100); Mean Platelet Volume 10.7 fl (7.4-10.4); Platelet Count Result 235 k/mm3 (150-375); Red Blood Count 5.25 M/mm3 (4.6-6.20); Red Cell Distribution Width 12.3 % (11.5-14.5); White Blood Count 10.9 K/mm3 (4.5-10.0)
[2021-10-09 10:04] LABS: Anion Gap 8 mmol/L (8-16); Blood Urea Nitrogen 6 mg/dL (9-20); Calcium 9.1 mg/dL (8.4-10.2); Carbon Dioxide 26 mmol/L (22-30); Chloride 105 mmol/L (98-107); Estimated CRCL calculation 118 ml/min; Estimated Glomerular Filt Rate > 60; Glucose 104 mg/dL (65-110); Potassium 3.7 mmol/L (3.4-5.0); Sodium 139 mmol/L (137-145)
--- NOTE | 2021-11-08 13:33 | PM.DS ---
DS: Admitting Diagnosis Discharge Date 10/09/21 Admitting Diagnosis chest pain DS: Summary Hospital Course Reason for hospitalization: Chest pain Narrative: 46-year-old male with past medical history of chronic tobacco abuse, hyperlipidemia, premature coronary artery disease with multiple cardiac stents complicated by nonadherence to medication regimen who presented to the ER with chest pain.? Patient reports that he had a STEMI in April 2010 (at age 34) He had a 2nd SD at age 39.? He states that his original stent had occluded because he had quit taking some of his cardiac medications and he had to have angioplasty and 2nd stent placed in site of his original stent and had new disease requiring assistance in his posterior circulation.? His 1st stent was placed by Dr. Nguyen and his 2nd stent was placed at [facility].? He admits that he has not followed up with Cardiology in at least 6 years.? He is not taking has Lipitor, metoprolol, Plavix or aspirin in that same amount of time.? He quit going to the [employer] when he lost his insurance.? He reports that he has continued to smoke.? He decided to come to the hospital this evening after he had been having intermittent substernal chest pain that is been ongoing for a couple of weeks.? Initially the pain only occurred when he was having more vigorous activity.? He reports that he had associated shortness of breath.? He reports that over the last few days he would get substernal heaviness and shortness of breath any time he would laid down.? He initially thought it was maybe some anxiety.? Than a couple of days ago he had a episode of sharp stabbing pain but he had been lifting some furniture.? He had not had a recurrence of a sharp stabbing pain.? But yesterday he woke up at 12:30 p.m. with central chest pressure with associated diaphoresis and heavy almost numb sensation in his arms that radiated down to his elbows.? He had gotten a bottle of nitro from his mother last month and took 2 nitro with no significant improvement in his symptoms.? He also took a full-dose aspirin.? When his pain did not resolve he drove himself to the ER.? On arrival to the ER he was still having chest pain and received 4 mg morphine which helped with his symptoms.? He reports that the symptoms he was having last night were similar to his prior SD.? The only exception was at his pain this time involved both arms instead of just the left arm. He does have some GERD symptoms which he takes [id number] omeprazole.? He does snore.? He has been told that he stops breathing at night.? He has been referred for polysomnogram in the past but could not afford the testing. Source of information:? Patient report, ER report and review of limited past medical records. Hospital Course: today patient was taken to the? cardiac lab and had a cardiac catheterization, the reports his pending? however patient states they found coronary artery disease and stents were placed, patient states is feeling much better now denies any chest pain,? will follow-up on cardiac catheterization report and further recommendation to follow will continue to monitor. today patient remains clinically stable seen by Cardiology recommended dual anti-platelet therapy, statin, aggressive risk factor modification, patient agreed to discharge and will follow-up with cardiology as scheduled Time Spent with Patient Time attestation: Total time spent providing and/or coordinating discharge services: Exam Narrative: ?moderately obese Patient is comfortable, NAD HEENT: eyes are clear and none icteric LUNGS: normal respiratory effort ABD: distended Lower extremities: no edema SKIN: nonjaundiced Neuro: grossly intact. Discharge Plan Discharge Attending physician on discharge: Rock Wallace Consulting providers: Carmelo Rosales ; Dean Doyle ; Dylan Dale ; Lynda Flores ; Jarocho Brooke V. ; Jessenia Kramer Discharging Clinician
== END 2021-10-09 13:40 | disposition home or self-care (01) | DRG 175 ==
LOC: ANHED 03:01 → ANHIMU 03:19
PROVIDERS: Internal Medicine Cardiovascular Disease; Admitting Provider Internal Medicine; Emergency Provider Emergency Medicine; Visit Provider Family Medicine
PROC: 4A023N7 Measurement of Cardiac Sampling and Pressure, Left Heart, Percutaneous Approach (ICD-10-PCS; CPT 93452; principal; 2021-10-08 11:30)
PROC: 02703DZ Dilation of Coronary Artery, One Artery with Intraluminal Device, Percutaneous Approach (ICD-10-PCS; 2021-10-08 11:30)
PROC: 02703DZ Dilation of Coronary Artery, One Artery with Intraluminal Device, Percutaneous Approach (ICD-10-PCS; CPT 92928; 2021-10-08 11:30)
PROC: 02703DZ Dilation of Coronary Artery, One Artery with Intraluminal Device, Percutaneous Approach (ICD-10-PCS; 2021-10-08 11:30)
DX: I25.110 Atherosclerotic heart disease of native coronary artery with unstable angina pectoris (principal); T82.855A Stenosis of coronary artery stent, initial encounter; Z20.822 Contact with and (suspected) exposure to COVID-19; E78.00 Pure hypercholesterolemia, unspecified; K21.9 Gastro-esophageal reflux disease without esophagitis; F17.210 Nicotine dependence, cigarettes, uncomplicated; E66.9 Obesity, unspecified; Z68.30 Body mass index [BMI] 30.0-30.9, adult; Z91.14 Patient's other noncompliance with medication regimen; I25.2 Old myocardial infarction; Z95.5 Presence of coronary angioplasty implant and graft; Z90.49 Acquired absence of other specified parts of digestive tract
CPT/HCPCS: 36415; 71046; 80048; 80053; 80061; 83690; 83735; 83880; 84484; 85025; 85027; 85610; 85730; 92978; 93005; 93458; 96360; 96361; 96372; 96374; 99285; A9270; C1725; C1753; C1760; C1769; C1874; C1887; C1894; C9600; C9803; G0269; G0378; G0379; J0461; J0583; J1644; J1650; J2250; J2270; J3010; J7040; U0003; U0005

== ENCOUNTER 2022-01-11 17:48 | Emergency (ER) | payer SELFPAY ==
--- NOTE | ~2022-01-11 | XR_ITS ---
EXAM: XR wrist RT min 3V DATE: 01/11/2022 18:41 HISTORY: felt pop then pain right ulnar wrist today . COMPARISON: 09/29/2008. FINDINGS: Normal mineralization. No fracture or dislocation. No lytic or blastic lesion. Mild degene rative radiocarpal, trapeziometacarpal, and triscaphe changes. Hooklike third metacarpal osteophyte. No erosion or periosteal change. Soft tissues within normal limits. IMPRESSION: No acute osseous finding in the right wrist. Reviewed, dictated and finalized at location K.
[2022-01-11 17:59] VITALS: BP 166/82; PULSE 91; RESP 16; TEMP 36.4; O2SAT 99
--- NOTE | 2022-01-11 18:22 | ED.UPPEXIN ---
HPI - Extremity Injury (Upper) General Chief Complaint: Extremity Injury, Upper Stated Complaint: Right Wrist Pain Time Seen by Provider: 01/11/22 18:22 Source: patient, RN notes reviewed and old records reviewed Mode of arrival: ambulatory Limitations: no limitations History of Present Illness HPI narrative: 46-year-old male presents to the [facility] with complaints of right wrist pain. Patient states he was at work, working (head of motions) he felt a pop in the right wrist. Has decreased range of motion secondary to pain. Patient reports that when it originally happened he had some numbness and tingling in fingers 3 4 and 5. Tenderness to the volar aspect of the distal ulna. Mild swelling noted. No bruising. Related Data Home Medications Medication Instructions Recorded Confirmed acetaminophen 325 mg tablet 650 mg PO Q6H PRN Pain 10/07/21 01/11/22 (Tylenol) esomeprazole magnesium 20 mg 20 mg PO DAILY 10/07/21 01/11/22 capsule,delayed release (Nexium) multivitamin with minerals-folic 1 tablet PO DAILY 10/07/21 01/11/22 acid 0.4 mg tablet clopidogrel 75 mg tablet 75 mg PO DAILY 01/11/22 01/11/22 Allergies Allergy/AdvReac Type Severity Reaction Status Date / Time ciprofloxacin Allergy Intermediate RESPIRATORY Verified 01/11/22 18:09 DIFFICULTY, ITCHING Penicillins Allergy Mild Unknown Verified 01/11/22 18:09 codeine Allergy Unknown Unknown Verified 01/11/22 18:09 Review of Systems Review of Systems: All systems reviewed & are unremarkable except as noted in HPI and below Constitutional: Constitutional: Reports no additional constitutional complaints, Denies chills and Denies fever(s) Eyes: Eyes: Reports no additional eye complaints ENT: Reports system reviewed and no additional complaints, except as documented Cardiovascular: Cardiovascular: Reports no additional cardiovascular complaints Respiratory: Respiratory: Reports no additional respiratory complaints Gastrointestinal: Gastrointestinal: Reports no additional gastrointestinal complaints Musculoskeletal: Musculoskeletal: Reports as per HPI and Reports arthralgias (Right wrist) Integumentary/Breasts: Skin/Breast: Reports system reviewed and no additional complaints, except as docu Neurologic: Reports system reviewed and no additional complaints, except as documented Psychiatric: Psychiatric: Reports no additional psychiatric complaints Allergic/Immunologic: Allergic/Immunologic: Reports no additional allergic/immunologic complaints PMFSH Past Medical History Medical History Continuous tobacco abuse Dyslipidemia Hypercholesterolemia Myocardial infarct Non compliance w medication regimen Right rotator cuff tear Surgical History Surgical History History of appendectomy History of cervical discectomy History of tonsillectomy and adenoidectomy Hx of cardiac catheterization April 2011 and 2015 Family History Family History Mother Diabetes mellitus Acute myocardial infarction Patient states his mother has had 5 open heart surgeries on 27 stents Cerebrovascular accident SLE (systemic lupus erythematosus) CHF (congestive heart failure) Hypertension Son Kidney disease Father , In his 30s. Throat cancer was identified during autopsy. 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 He has 6 children. One of his sons has kidney disease of uncertain type. 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 He used to drink heavily but now only drinks a few beers once a month. He denies illicit substance use. He has a girlfriend. He lives alone.
== END 2022-01-11 19:05 | disposition home or self-care (01) ==
PROVIDERS: Emergency Provider Nurse Practitioner
DX: S63.501A Unspecified sprain of right wrist, initial encounter (principal); S66.911A Strain of unspecified muscle, fascia and tendon at wrist and hand level, right hand, initial encounter; X58.XXXA Exposure to other specified factors, initial encounter; Y99.0 Civilian activity done for income or pay; E78.5 Hyperlipidemia, unspecified; E78.00 Pure hypercholesterolemia, unspecified; I25.2 Old myocardial infarction; F17.210 Nicotine dependence, cigarettes, uncomplicated
CPT/HCPCS: 73110; 99213; G0463

== ENCOUNTER 2022-06-11 11:56 | Emergency (ER) | payer SELFPAY ==
[2022-06-11 12:08] VITALS: BP 168/97; PULSE 90; RESP 12; TEMP 36.9; O2SAT 100
--- NOTE | 2022-06-11 12:39 | ED.DENTAL ---
HPI - Dental/Oral General Chief complaint: Dental/Oral Stated complaint: Swelling and pain on left side of face Time Seen by Provider: 06/11/22 12:39 Source: patient Mode of arrival: ambulatory Limitations: no limitations History of Present Illness HPI Narrative: 46-year-old male presents concern for pain and swelling on left side of his face. Reports dental pain and tooth 11. He reports he has a dentist appointment in 2 weeks. Reports he took a leftover last night without relief. He denies trouble swallowing or fever. MD Complaint: tooth pain Related Data Home Medications Medication Instructions Recorded Confirmed esomeprazole magnesium 20 mg 20 mg PO DAILY 10/07/21 06/11/22 capsule,delayed release (Nexium) multivitamin with minerals-folic 1 tablet PO DAILY 10/07/21 06/11/22 acid 0.4 mg tablet clopidogrel 75 mg tablet 75 mg PO DAILY 01/11/22 06/11/22 Allergies Allergy/AdvReac Type Severity Reaction Status Date / Time ciprofloxacin Allergy Severe RESPIRATORY Verified 06/11/22 12:38 DIFFICULTY, ITCHING codeine Allergy Intermediate Itching Verified 06/11/22 12:38 Penicillins Allergy Intermediate Hives Verified 06/11/22 12:38 Review of Systems Review of Systems: CONSTITUTIONAL: Denies malaise, chills, sweats, or fever. EYES: Denies visual changes ENT: Denies rhinorrhea, congestion, sinus pain, otalgia or sore throat. Reports left upper dental pain and facial swelling CARDIOVASCULAR: Denies chest pain, palpitations RESPIRATORY: Denies cough or dyspnea. SKIN: Denies rash or itching. MUSCULOSKELETAL: Denies myalgia. NEUROLOGIC: Denies numbness, weakness, or headache. All systems reviewed & are unremarkable except as noted in HPI and below [facility] Past Medical History Medical History Continuous tobacco abuse Dyslipidemia Hypercholesterolemia Myocardial infarct Non compliance w medication regimen Right rotator cuff tear Surgical History Surgical History History of appendectomy History of cervical discectomy History of tonsillectomy and adenoidectomy Hx of cardiac catheterization April 2011 and 2015 Family History Family History Mother Diabetes mellitus Acute myocardial infarction Patient states his mother has had 5 open heart surgeries on 27 stents Cerebrovascular accident SLE (systemic lupus erythematosus) CHF (congestive heart failure) Hypertension Son Kidney disease Father , In his 30s. Throat cancer was identified during autopsy. 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 He has 6 children. One of his sons has kidney disease of uncertain type. 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 He used to drink heavily but now only drinks a few beers once a month. He denies illicit substance use. He has a girlfriend. He lives alone. Code status: Full code Smoking packs per day: 1 Smoking cigarettes per day: 20.0 Years smoked: 35 Smoking pack-years: 35.00 Smoking status: Current every day smoker Tobacco type: cigarettes Alcohol intake: current Alcohol use details: 3 or 4 drinks once a month. 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 Spiritual care concerns: No Comments At time of signature, agree with nursing past medical, surgical, social and family history. There is no relevant family history pertinent to the presenting complaint Exam Narrative: GENERAL: Well-appearing, well-nourished, and in no acute distress. HEAD: Normocephalic, atraumatic. EYES: PERRLA, sclera clear ENT: Nares clear, turbinates pink, no rhinorrh
== END 2022-06-11 13:12 | disposition home or self-care (01) ==
PROVIDERS: Emergency Provider Nurse Practitioner
DX: K04.7 Periapical abscess without sinus (principal); F17.210 Nicotine dependence, cigarettes, uncomplicated; E78.5 Hyperlipidemia, unspecified; E78.00 Pure hypercholesterolemia, unspecified; I25.2 Old myocardial infarction
CPT/HCPCS: 99213; G0463